=== PATIENT | female | born 1995 ===

== ENCOUNTER 2019-08-24 23:46 | Inpatient (IN) ==
[2019-08-25] MEDS ORDERED: ONDANSETRON 4 MG/2 ML VIAL IV PRN ×2 (00:38→14:05)
[2019-08-25] MEDS ORDERED: LACTATED RINGERS 1,000 ML IV ONE (00:38)
[2019-08-25] MEDS ORDERED: LACTATED RINGERS 500 ML IV PRN (00:38)
[2019-08-25] MEDS ORDERED: LACTATED RINGERS 1,000 ML IV SCH (01:00)
[2019-08-25 01:06] LABS: Basophils % 0.6 % (0.0-0.8); Eosinophils % 0.6 % (0.00-10.9); Hematocrit 32.2 VOL% (35.7-47.0); Hemoglobin 9.7 GM/DL (12.0-16.0); Immature Granulocytes % 0.4 %; Immature Granulocytes Absolute 0.03 #; Lymphocytes # 1.6 10*3/uL (1.4-4.0); Lymphocytes % 23.9 % (21.3-54.2); Mean Corpuscular HGB Conc 30.1 GM/DL (32-36); Mean Corpuscular Volume 76.5 FL (87-102); Monocytes % 7.4 % (1.7-12.7); Neutrophils % 67.1 % (38.7-73.9); Platelet Count 197 T/CUMM (130-400); Red Blood Count 4.21 MC/CUMM (3.8-5.5); Red Cell Distribution Width 17.4 % (9.3-17.3); White Blood Count 6.8 T/CUMM (4-12)
[2019-08-25 01:40] LABS: Alanine Aminotransferase < 6 U/L (13-56); Albumin 2.1 G/DL (3.4-5.0); Alkaline Phosphatase 225 U/L (45-117); Aspartate Amino Transferase 12 U/L (0-37); Bilirubin,Total < 0.39 MG/DL (0.2-1.0); Blood Urea Nitrogen 8 MG/DL (7-18); Calcium 8.4 MG/DL (8.5-10.1); Estimated Glom Filtration Rate 169 ML/MIN; Glucose 100 MG/DL (74-106); Osmolality,Calculated 274.5 MOS/KG (273-304); Total Protein 6.5 G/DL (6.4-8.3)
[2019-08-25] MEDS ORDERED: BUTORPHANOL 2 MG/ML VIAL IV PRN (04:37)
[2019-08-25] MEDS ORDERED: NALOXONE 0.4 MG/ML VIAL IV PRN (06:26)
[2019-08-25] MEDS ORDERED: hydrOXYzine HCL 25 MG/1 ML VIAL IM PRN (06:26)
[2019-08-25] MEDS ORDERED: ePHEDrine 50 MG/ML AMP IV PRN (06:26)
[2019-08-25] MEDS ORDERED: PROMETHAZINE 25 MG/1 ML VIAL IM ONE (06:26)
[2019-08-25] MEDS ORDERED: CITRIC ACID/SODIUM CITRATE 30 ML UDCUP PO ONE (06:26)
[2019-08-25] MEDS ORDERED: ONDANSETRON 4 MG/2 ML VIAL IV ONE (06:26)
[2019-08-25] MEDS ORDERED: diphenhydrAMINE 50 MG/1 ML VIAL IV PRN ×2 (06:26)
[2019-08-25] MEDS ORDERED: FAMOTIDINE 20 MG TABLET PO ONE (06:26)
[2019-08-25] MEDS ORDERED: fentaNYL 2 MCG/ROPIV 0.2% EPID 100 ML EPIDURAL SCH (06:30)
[2019-08-25] MEDS ORDERED: FAMOTIDINE 20 MG/2 ML VIAL IV ONE (07:24)
[2019-08-25] MEDS ORDERED: OXYTOCIN/LR 20 UNIT/1,000 ML BAG IV ONE ×2 (08:50→14:05)
[2019-08-25] MEDS ORDERED: OXYTOCIN/LR 20 UNIT/1,000 ML BAG IV SCH (09:00)
[2019-08-25] MEDS ORDERED: ACETAMINOPHEN 500 MG TABLET PO PRN (09:53)
[2019-08-25 10:20] LABS: Apearance,Urine Slightly Hazy (Clear); Bacteria,Urine Occasional /HPF (Few); Bilirubin,Urine Negative (Negative); Blood, Urine Negative (Negative); Glucose,Urine (UA) Negative (Negative); Ketones,Urine Negative (Negative); Mucus,Urine Few /LPF (Occasional); Nitrite,Urine Negative (Negative); Protein,Urine 30 MG/DL; RBC,Urine 2 /HPF (0-4); Squamous Epithelial Cell,Urine Occasional /HPF (0-10); Urine Color Yellow (Yellow); Urine Specific Gravity 1.021 (1.001-1.035); Urine Urobilinogen < 2.0 EU/DL (0.2-1.0); WBC,Urine 9 /HPF (0-6)
[2019-08-25] MEDS ORDERED: miSOPROStoL 200 MCG TABLET ONE (12:40)
[2019-08-25] MEDS ORDERED: LIDOCAINE 1% 50 ML VIAL ONE (12:40)
[2019-08-25] MEDS ORDERED: METHYLERGONOVINE 0.2 MG/1 ML AMP ONE (12:41)
[2019-08-25] MEDS ORDERED: BISACODYL 10 MG SUPP RECTAL PRN (14:05)
[2019-08-25] MEDS ORDERED: BENZOCAINE 20%/MENTHOL 0.5% SPRAY 56 GM CAN TOP PRN (14:05)
[2019-08-25] MEDS ORDERED: WITCH HAZEL PADS 100/JAR TOP PRN (14:05)
[2019-08-25] MEDS ORDERED: DIPH/TET/ACEL PERT BOOSTER VACCINE 0.5 ML VIAL IM ONE (14:05)
[2019-08-25] MEDS ORDERED: MEASLES/MUMPS/RUBELLA VACCINE 0.5 ML VIAL SUBCUT ONE (14:05)
[2019-08-25] MEDS ORDERED: RHO(D) IMMUNE GLOBULIN 300 MCG SYRINGE IM ONE (14:05)
[2019-08-25] MEDS ORDERED: HYDROCORTISONE 2.5% RECTAL CREAM 30 GM TUBE TOP PRN (14:05)
[2019-08-25] MEDS ORDERED: LANOLIN 50% CREAM 0.3 OZ TUBE TOP PRN (14:05)
[2019-08-25] MEDS ORDERED: ACETAMINOPHEN 325 MG TABLET PO PRN (14:05)
[2019-08-25 14:08] LABS: Cord Venous Blood HCO3 21.5 MMOL/L; Cord Venous Blood PCO2 52.1 MMHG; Cord Venous Blood PO2 28.2 MMHG
[2019-08-25] MEDS: IBUPROFEN 800 MG TABLET PO PRN (15:32)
[2019-08-25] MEDS: oxyCODONE/ACETAMINOPHEN 5-325 MG TABLET PO PRN ×2 (17:01→18:08)
[2019-08-25] MEDS: DOCUSATE SODIUM 100 MG CAPSULE PO SCH (20:49)
[2019-08-26] MEDS: IBUPROFEN 800 MG TABLET PO PRN ×2 (01:51→19:29)
[2019-08-26 06:55] LABS: Basophils % 0.5 % (0.0-0.8); Eosinophils # 0.1 10*3/uL (0.0-0.87); Eosinophils % 1.9 % (0.00-10.9); Hematocrit 26.8 VOL% (35.7-47.0); Hemoglobin 8.1 GM/DL (12.0-16.0); Immature Granulocytes % 0.4 %; Immature Granulocytes Absolute 0.03 #; Lymphocytes % 25.9 % (21.3-54.2); Mean Corpuscular HGB Conc 30.2 GM/DL (32-36); Mean Corpuscular Volume 75.9 FL (87-102); Mean Platelet Volume 10.4 FL (9.6-12.0); Monocytes % 6.8 % (1.7-12.7); Neutrophils % 64.5 % (38.7-73.9); Platelet Count 180 T/CUMM (130-400); Red Blood Count 3.53 MC/CUMM (3.8-5.5); Red Cell Distribution Width 17.6 % (9.3-17.3); White Blood Count 7.5 T/CUMM (4-12)
[2019-08-26] MEDS: DOCUSATE SODIUM 100 MG CAPSULE PO SCH ×2 (09:24→19:30)
[2019-08-26] MEDS: oxyCODONE/ACETAMINOPHEN 5-325 MG TABLET PO PRN ×2 (09:25→16:03)
[2019-08-26] MEDS: FERROUS SULFATE 325 MG TABLET PO SCH (20:34)
[2019-08-27] MEDS: oxyCODONE/ACETAMINOPHEN 5-325 MG TABLET PO PRN (01:18)
[2019-08-27] MEDS: IBUPROFEN 800 MG TABLET PO PRN (06:18)
[2019-08-27] MEDS: DOCUSATE SODIUM 100 MG CAPSULE PO SCH ×2 (06:37→10:15)
[2019-08-27] MEDS: FERROUS SULFATE 325 MG TABLET PO SCH (10:15)
[2019-08-27 12:24] VITALS: BP 101/50
== END 2019-08-27 11:00 | disposition home or self-care (01) | DRG 807 ==
LOC: N.LDOUT 23:46 → N.LD 23:47 → N.OB 08-25 16:45
PROVIDERS: ADMIT Obstetrics & Gynecology; ATTEND Obstetrics & Gynecology